=== PATIENT | female | born 1965 | race Caucasian/White ===

== ENCOUNTER 2024-05-03 17:16 | Outpatient (CLI) | payer BC ==
[2024-05-03 17:52] LABS: MEAN PLATELET VOLUME 9.5 FL (7.4-10.4); MONOCYTES # (AUTO) 0.5 X10'3 (0-0.9); WHITE BLOOD COUNT 6.5 X10'3 (4.5-11.0)
[2024-05-03 17:54] LABS: BASOPHILS % (AUTO) 0.6 % (0-1); EOSINOPHILS # (AUTO) 0.2 X10'3 (0-0.9); EOSINOPHILS % (AUTO) 3.5 % (0-6); HEMATOCRIT 41.5 % (35.0-45.0); HEMOGLOBIN 14.1 g/dl (12.0-16.0); LYMPHOCYTES # (AUTO) 2.4 X10'3 (1.1-4.8); LYMPHOCYTES % (AUTO) 37.3 % (21-51); MEAN CORPUSCULAR HEMOGLOBIN 32.8 PG (27.0-31.0); MEAN CORPUSCULAR HGB CONC 33.9 g/dL (33.0-36.5); MEAN CORPUSCULAR VOLUME 96.8 FL (78-98); MONOCYTES % (AUTO) 8.1 % (2-12); NEUTROPHILS # (AUTO) 3.3 X10'3 (1.8-7.7); NEUTROPHILS % (AUTO) 50.5 % (42-75); PLATELET COUNT 272 X10'3 (140-440); RED BLOOD COUNT 4.29 X10'6 (4.20-5.60); RED CELL DISTRIBUTION WIDTH 14.1 % (11.5-14.5)
[2024-05-03 17:59] LABS: ALBUMIN 3.8 G/DL (3.4-5.0); ANION GAP 10 (8-16); APTT 28 SECONDS (22-32); BLOOD UREA NITROGEN 15 MG/DL (7-18); BUN/CREATININE RATIO 10.3 (10.0-20.0); CALCIUM 9.5 MG/DL (8.5-10.1); CHLORIDE 108 MMOL/L (99-107); CREATININE 1.46 MG/DL (0.40-0.90); GLUCOSE 110 MG/DL (70-104); INR 1.1 INR; POTASSIUM 4.6 MMOL/L (3.5-5.1); PROTHROMBIN TIME 11.1 SECONDS (9.0-12.0); SODIUM 146 MMOL/L (135-145); TOTAL CARBON DIOXIDE 28.5 MMOL/L (24-32); eGFR 36 ML/MIN
== END 2024-05-03 23:59 | disposition home or self-care (01) ==
LOC: LAB 17:16
PROVIDERS: ATTEND Internal Medicine Interventional Cardiology
DX: I48.91 Unspecified atrial fibrillation (principal)
CPT/HCPCS: 36415; 80048; 85025; 85610; 85730

== ENCOUNTER 2024-05-07 11:28 | Day surgery (SDC) | payer BC ==
[~2024-05-07] VITALS: Ht 172.7 cm; Wt 86.5 kg
[2024-05-07] VITALS (14 sets, daily range): BP systolic 106–143; BP diastolic 64–96; PULSE 57–93; RESP 16; TEMP 97.7; O2SAT 96–100
[2024-05-07] MEDS ORDERED: PANT-47 PO (11:49)
[2024-05-07] MEDS ORDERED: PANT40TA54 PO (11:49)
[2024-05-07] MEDS ORDERED: SPIR25TA5 PO (11:49)
[2024-05-07] MEDS ORDERED: FEXO-310 PO (11:49)
[2024-05-07] MEDS ORDERED: FLUT15.87 BOTHNARES (11:49)
[2024-05-07] MEDS ORDERED: ATOR40TA72 PO (11:49)
[2024-05-07] MEDS ORDERED: APIX5TAB3 PO (11:49)
[2024-05-07] MEDS ORDERED: LOSA100T58 (11:49)
[2024-05-07] MEDS: MIDAZolam 1mg/ml 10ml vial IV ONE (15:30)
[2024-05-07] MEDS: normal saline 1000ml 1,000 ML IV SCH (15:30)
[2024-05-07] MEDS: fentaNYL/PF 50MCG/1 ML 2ML syringe IV ONE (15:30)
== END 2024-05-07 15:40 | disposition home or self-care (01) ==
LOC: SSTAY O 11:28
PROVIDERS: ATTEND Internal Medicine Interventional Cardiology
DX: I48.91 Unspecified atrial fibrillation (principal); I11.0 Hypertensive heart disease with heart failure; I50.9 Heart failure, unspecified; E78.00 Pure hypercholesterolemia, unspecified; Z86.73 Personal history of transient ischemic attack (TIA), and cerebral infarction without residual deficits; Z79.01 Long term (current) use of anticoagulants; Z79.899 Other long term (current) drug therapy; Z88.8 Allergy status to other drugs, medicaments and biological substances
CPT/HCPCS: 92960; 93005; J2250; J3010; J7030